=== PATIENT | male | born 1940 | race African-American/Black ===

== ENCOUNTER 2017-11-21 12:18 | Outpatient (CLI) | payer MEDICARE | END 2017-11-21 12:19 | disposition home or self-care (01) | LOC: BICRAD 12:18 | PROVIDERS: ATTEND Internal Medicine | DX: I11.0 Hypertensive heart disease with heart failure (principal); I50.9 Heart failure, unspecified; R05 Cough; J98.4 Other disorders of lung | CPT/HCPCS: 71046 ==

== ENCOUNTER 2025-06-06 11:13 | Outpatient (CLI) | payer OTHER | END 2025-06-06 11:14 | disposition home or self-care (01) | LOC: BICRAD 11:13 | PROVIDERS: ATTEND Family Medicine | DX: J20.9 Acute bronchitis, unspecified (principal) | CPT/HCPCS: 71046 ==